=== PATIENT | female | born 1995 | race Hispanic/Latino ===

== ENCOUNTER 2017-08-09 21:10 | Inpatient (IN) | payer OTHER ==
[~2017-08-09] VITALS: Ht 152.4 cm; Wt 85.2 kg
[2017-08-09] MEDS ORDERED: ONDANSETRON HCL MDV 20ML 2 MG/ML VIAL ONE (21:35)
[2017-08-09 21:42] LABS: BASOPHILS % (AUTO) 0.6 % (0.0-5.0); EOSINOPHILS % (AUTO) 0.1 % (0.0-8.0); HEMATOCRIT 45.3 % (36-48); LYMPHOCYTES % (AUTO) 18.6 % (21.0-51.0); MEAN CORPUSCULAR HEMOGLOBIN 30.7 pg (27.0-33.0); MEAN CORPUSCULAR HGB CONC 34.7 g/dL (32.0-36.0); MEAN CORPUSCULAR VOLUME 88.5 fL (79-99); MONOCYTES % (AUTO) 3.9 % (3.0-13.0); NEUTROPHILS % (AUTO) 76.8 % (40.0-77.0); NUCLEATED RED BLOOD CELLS 0.1 % (0.0-0.19); PLATELET COUNT (AUTO) 515 K/uL (130-400); RED BLOOD CELL COUNT(AUTO) 5.12 MIL/uL (4.00-5.50); RED CELL DISTRIBUTION WIDTH 13.2 % (11.0-15.5); WHITE BLOOD COUNT (AUTO) 15.7 K/uL (4.8-10.8)
[2017-08-09] MEDS ORDERED: KETOROLAC TROMETHAMINE 15MG/ML ONE (21:49)
[2017-08-09] MEDS ORDERED: SODIUM CHLORIDE 0.9% 1000ML 1,000 ML IV ONE (21:49)
[2017-08-09 21:54] LABS: APPEARANCE,URINE Clear (CLEAR); BILIRUBIN,URINE Negative (NEGATIVE); COLOR,URINE Yellow (YELLOW); GLUCOSE, URINE (UA) >=1000 mg/dL (NEGATIVE); KETONES,URINE >=160 mg/dL (NEGATIVE); LEUKOCYTE ESTERASE ,URINE Negative (NEGATIVE); NITRATE,URINE Negative (NEGATIVE); OCCULT BLOOD,URINE Small (NEGATIVE); PROTEIN,URINE POS 1+ (NEGATIVE); UROBILINOGEN,URINE 0.2 mg/dL (0.2-1.0)
[2017-08-09 21:55] LABS: HCG,QUAL RESULT NEGATIVE (NEGATIVE)
[2017-08-09 22:06] LABS: BACTERIA,URINE Few /HPF (None Seen)
[2017-08-09 22:07] LABS: FINE GRANULAR CASTS,URINE 0-2 /LPF (None Seen); SQUAMOUS EPITHELIAL CELL,UR 30-50 /HPF (0-2)
[2017-08-09 22:27] LABS: CREATININE 0.9 mg/dL (0.5-1.5); POTASSIUM 3.8 mmol/L (3.5-5.1)
[2017-08-09 22:32] LABS: ALBUMIN 4.1 g/dL (3.5-5.0); BILIRUBIN,TOTAL 0.5 mg/dL (0.2-1.0); TOTAL PROTEIN, SERUM 9.1 g/dL (6.0-8.3)
[2017-08-09] MEDS ORDERED: MAGNESIUM OXIDE 400 MG TABLET PO ONE ×2 (23:35→23:48)
[2017-08-09] MEDS ORDERED: POTASSIUM BICARB/CIT AC 25 MEQ TABLET.EFF ONE (23:35)
[2017-08-09] MEDS ORDERED: CLINDAMYCIN 600 MG/D5% WATER 50 ML IV ONE (23:35)
[2017-08-09 23:56] LABS: ABG OXYGEN SATURATION 31.4 % (95.0-99.0); BASE EXCESS,VENOUS BLOOD GAS -18.5 (-2.0-3.0); HCO3,VENOUS BLOOD GAS 9.7 (21.0-28.0); PCO2,VENOUS BLOOD GAS 31 (32-45); PH,VENOUS BLOOD GAS 7.117 (7.350-7.450)
[2017-08-10] VITALS (11 sets, daily range): BP systolic 104–138; BP diastolic 47–84
[2017-08-10] MEDS ORDERED: SODIUM CHLORIDE 0.9% 1000ML 1,000 ML IV ONE (00:36)
[2017-08-10] MEDS: FAMOTIDINE 20MG TAB 20 MG TAB PO SCH (02:30)
[2017-08-10] MEDS: SODIUM CHLORIDE 0.9% 1000ML 1,000 ML IV SCH ×3 (02:30→17:57)
[2017-08-10] MEDS ORDERED: POTASSIUM CHLORIDE 10% ELIXIR 20 MEQ/15 ML UDCUP PO PRN (02:45)
[2017-08-10] MEDS ORDERED: DEXTROSE 50%-WATER 50 ML DISP.SYRIN IV PRN (02:45)
[2017-08-10] MEDS ORDERED: GLUCAGON 1MG KIT 1 MG ML IM PRN (02:45)
[2017-08-10] MEDS ORDERED: CLINDAMYCIN 600 MG/D5% WATER 50 ML IV ONE (05:34)
[2017-08-10 05:59] LABS: BASOPHILS % (AUTO) 0.5 % (0.0-5.0); EOSINOPHILS % (AUTO) 0.4 % (0.0-8.0); HEMATOCRIT 41.2 % (36-48); LYMPHOCYTES % (AUTO) 28.5 % (21.0-51.0); MEAN CORPUSCULAR HGB CONC 33.8 g/dL (32.0-36.0); MEAN CORPUSCULAR VOLUME 88.7 fL (79-99); MONOCYTES % (AUTO) 7.7 % (3.0-13.0); NEUTROPHILS % (AUTO) 62.9 % (40.0-77.0); PLATELET COUNT (AUTO) 347 K/uL (130-400); RED BLOOD CELL COUNT(AUTO) 4.64 MIL/uL (4.00-5.50); RED CELL DISTRIBUTION WIDTH 12.8 % (11.0-15.5); WHITE BLOOD COUNT (AUTO) 11.2 K/uL (4.8-10.8)
[2017-08-10] MEDS: CLINDAMYCIN 600 MG/D5% WATER 50 ML IV SCH ×3 (06:00→17:58)
[2017-08-10 06:08] LABS: CREATININE 0.7 mg/dL (0.5-1.5); POTASSIUM 3.5 mmol/L (3.5-5.1)
[2017-08-10] MEDS: INSULIN HUMULIN R 100 UNIT/ML 3ML SQ SCH ×2 (07:30→11:23)
[2017-08-10] MEDS ORDERED: INSULIN DETEMIR 10ML 100 UNIT/ML 10ML SQ SCH (07:30)
[2017-08-10] MEDS ORDERED: DAPA10TA PO (08:42)
[2017-08-10] MEDS ORDERED: LISI-617 PO (08:42)
[2017-08-10] MEDS ORDERED: METF10004 PO (08:42)
[2017-08-10] MEDS ORDERED: SULF1TAB42 PO (09:28)
[2017-08-10 09:31] LABS: ABG BASE EXCESS -17.3 mmol/L (-2.0-3.0); ABG HCO3 8.5 mmol/L (21.0-28.0); ABG OXYGEN SATURATION 97.5 % (95.0-99.0); ABG PCO2 22 mmHg (32-45)
[2017-08-10] MEDS ORDERED: INSULIN REGULAR, HUMAN 3ML 100 UNIT in SODIUM CHLORIDE 0.9% 99 ML IV PRN ×4 (09:45→15:45)
[2017-08-10] MEDS: DEXTROSE 5 % AND 0.9 % NACL 1,000 ML IV SCH ×2 (10:16→16:43)
[2017-08-10 10:55] LABS: CREATININE 0.8 mg/dL (0.5-1.5); POTASSIUM 3.7 mmol/L (3.5-5.1)
[2017-08-10] MEDS: ENOXAPARIN SODIUM 40 MG/0.4 ML SYRINGE SQ SCH (11:00)
[2017-08-10] MEDS: ACETAMINOPHEN 325 MG TAB PO PRN ×2 (11:45→20:27)
[2017-08-10] MEDS ORDERED: ONDANSETRON HCL MDV 20ML 2 MG/ML VIAL IVP PRN (12:45)
[2017-08-10] MEDS ORDERED: MORPHINE SULFATE 2 MG/ML 1ML SYG IM PRN (12:45)
[2017-08-10 14:12] LABS: CREATININE 0.8 mg/dL (0.5-1.5); POTASSIUM 3.3 mmol/L (3.5-5.1)
[2017-08-10 18:20] LABS: CREATININE 0.8 mg/dL (0.5-1.5)
[2017-08-10 18:24] LABS: POTASSIUM 2.9 mmol/L (3.5-5.1)
[2017-08-10] MEDS: POTASSIUM CHLORIDE 20MEQ/100ML 100 ML IV PRN (18:41)
[2017-08-10] MEDS: LIDOCAINE HCL-MPF 1% 2ML VIAL IVP PRN ×2 (18:41→20:42)
[2017-08-10 22:28] LABS: CREATININE 0.7 mg/dL (0.5-1.5); MAGNESIUM 1.8 mg/dL (1.80-2.40); POTASSIUM 3.2 mmol/L (3.5-5.1)
[2017-08-11] VITALS (13 sets, daily range): BP systolic 104–145; BP diastolic 42–88
[2017-08-11] MEDS: CLINDAMYCIN 600 MG/D5% WATER 50 ML IV SCH ×4 (00:45→17:07)
[2017-08-11] MEDS: DEXTROSE 5 % AND 0.9 % NACL 1,000 ML IV SCH ×2 (00:49→05:27)
[2017-08-11 02:27] LABS: HEMATOCRIT 35.1 % (36-48); MEAN CORPUSCULAR HEMOGLOBIN 31.3 pg (27.0-33.0); MEAN CORPUSCULAR HGB CONC 35.3 g/dL (32.0-36.0); MEAN CORPUSCULAR VOLUME 88.5 fL (79-99); NUCLEATED RED BLOOD CELLS 0.1 % (0.0-0.19); PLATELET COUNT (AUTO) 320 K/uL (130-400); RED BLOOD CELL COUNT(AUTO) 3.97 MIL/uL (4.00-5.50); RED CELL DISTRIBUTION WIDTH 13.1 % (11.0-15.5); WHITE BLOOD COUNT (AUTO) 6.6 K/uL (4.8-10.8)
[2017-08-11] MEDS: FAMOTIDINE 20MG TAB 20 MG TAB PO SCH (02:30)
[2017-08-11] MEDS: SODIUM CHLORIDE 0.9% 1000ML 1,000 ML IV SCH ×3 (02:30→18:30)
[2017-08-11 02:42] LABS: CREATININE 0.8 mg/dL (0.5-1.5); MAGNESIUM 1.8 mg/dL (1.80-2.40)
[2017-08-11 03:19] LABS: EOSINOPHILS % (MANUAL) 1 % (1-6); LYMPHOCYTES % (MANUAL) 29 % (22-44); MONOCYTES % (MANUAL) 6 % (2-9); SEGMENTED NEUTROPHILS % 64 % (40-70)
[2017-08-11 03:20] LABS: MAN.DIFF COMMENT-IMPRESSION MANUAL DIFFERENTIAL; PLATELET MORPHOLOGY COMMENT ADEQUATE
[2017-08-11] MEDS: LIDOCAINE HCL-MPF 1% 2ML VIAL IVP PRN (03:39)
[2017-08-11] MEDS: POTASSIUM CHLORIDE 20MEQ/100ML 100 ML IV PRN (03:39)
[2017-08-11] MEDS: POTASSIUM CHLORIDE 20 MEQ ERTAB PO PRN ×3 (06:18→13:02)
[2017-08-11] MEDS ORDERED: INSULIN GLARGINE 100 UNITS/ML 10 ML VIAL SQ SCH ×2 (07:30→09:30)
[2017-08-11] MEDS: ENOXAPARIN SODIUM 40 MG/0.4 ML SYRINGE SQ SCH (08:06)
[2017-08-11 10:15] LABS: POTASSIUM 3.7 mmol/L (3.5-5.1)
[2017-08-11] MEDS: INSULIN HUMULIN R 100 UNIT/ML 3ML SQ SCH ×3 (11:48→20:54)
[2017-08-11 14:22] LABS: CREATININE 0.7 mg/dL (0.5-1.5); MAGNESIUM 1.9 mg/dL (1.80-2.40)
[2017-08-12] VITALS: BP 107/56
[2017-08-12] MEDS: FAMOTIDINE 20MG TAB 20 MG TAB PO SCH (02:30)
[2017-08-12 04:00] VITALS: BP 100/51
[2017-08-12 05:29] LABS: HEMATOCRIT 34.2 % (36-48); MEAN CORPUSCULAR HGB CONC 35.6 g/dL (32.0-36.0); MEAN CORPUSCULAR VOLUME 87.1 fL (79-99); PLATELET COUNT (AUTO) 296 K/uL (130-400); RED BLOOD CELL COUNT(AUTO) 3.92 MIL/uL (4.00-5.50); RED CELL DISTRIBUTION WIDTH 13.2 % (11.0-15.5); WHITE BLOOD COUNT (AUTO) 6.6 K/uL (4.8-10.8)
[2017-08-12 05:47] LABS: CREATININE 0.6 mg/dL (0.5-1.5)
[2017-08-12] MEDS: CLINDAMYCIN 600 MG/D5% WATER 50 ML IV SCH ×3 (06:25→12:03)
[2017-08-12] MEDS: LIDOCAINE HCL-MPF 1% 2ML VIAL IVP PRN ×2 (06:26→10:39)
[2017-08-12] MEDS: POTASSIUM CHLORIDE 20MEQ/100ML 100 ML IV PRN ×2 (06:26→10:39)
[2017-08-12] MEDS: SODIUM CHLORIDE 0.9% 1000ML 1,000 ML IV SCH ×2 (06:28→10:38)
[2017-08-12] MEDS: INSULIN HUMULIN R 100 UNIT/ML 3ML SQ SCH ×3 (06:28→16:48)
[2017-08-12 07:30] VITALS: BP 109/59
[2017-08-12] MEDS ORDERED: INSULIN GLARGINE 100 UNITS/ML 10 ML VIAL SQ SCH (07:30)
[2017-08-12] MEDS: ENOXAPARIN SODIUM 40 MG/0.4 ML SYRINGE SQ SCH (10:39)
[2017-08-12 11:00] VITALS: BP 109/59
[2017-08-12] MEDS ORDERED: CLIN300C9 PO (16:17)
== END 2017-08-12 17:45 | disposition home or self-care (01) | DRG 720 ==
LOC: EDH 21:10 → EDHIP 08-10 01:39 → OBSVTOIN 08-10 01:39 → 4BH 08-10 07:44 → 2CH 08-10 13:17 → 4BH 08-11 13:23
PROVIDERS: ADMIT Family Medicine; ATTEND Family Medicine
DX: A41.9 Sepsis, unspecified organism (principal); E11.10 Type 2 diabetes mellitus with ketoacidosis without coma; E87.2 Acidosis; L02.01 Cutaneous abscess of face; E11.65 Type 2 diabetes mellitus with hyperglycemia; E66.9 Obesity, unspecified; E86.0 Dehydration; Z79.84 Long term (current) use of oral hypoglycemic drugs; Z68.36 Body mass index [BMI] 36.0-36.9, adult; Z88.0 Allergy status to penicillin; Z83.3 Family history of diabetes mellitus
CPT/HCPCS: 36415; 36600; 80048; 80053; 81001; 81025; 82009; 82803; 82948; 83605; 83735; 84132; 85025; 85027; J1650; J1815; J1885; J3480; J3490; J7030; J7042

== ENCOUNTER 2020-03-24 16:41 | Inpatient (IN) | payer BC, OTHER ==
[~2020-03-24] VITALS: Ht 152.4 cm; Wt 32.2 kg
[~2020-03-24 16:41] MED LIST: CLIN300C10 PO; DAPA10TA PO; LISI-617 PO; METF-446 PO
[2020-03-24 18:46] LABS: APPEARANCE,URINE Cloudy (CLEAR); BILIRUBIN,URINE Negative (NEGATIVE); COLOR,URINE Yellow (YELLOW); GLUCOSE, URINE (UA) >=1000 mg/dL (NEGATIVE); KETONES,URINE >=160 mg/dL (NEGATIVE); LEUKOCYTE ESTERASE ,URINE Negative (NEGATIVE); NITRATE,URINE Negative (NEGATIVE); OCCULT BLOOD,URINE Small (NEGATIVE); PROTEIN,URINE POS 2+ mg/dL (NEGATIVE); UROBILINOGEN,URINE 0.2 mg/dL (0.2-1.0)
[2020-03-24 18:49] LABS: HCG,QUAL RESULT NEGATIVE (NEGATIVE)
[2020-03-24 19:06] LABS: RAPID GROUP A STREP NEGATIVE (NEGATIVE)
[2020-03-24 19:12] LABS: BACTERIA,URINE Few /HPF (None Seen); YEAST,URINE BUDDING Few /HPF (None Seen)
[2020-03-24 19:16] LABS: BASOPHILS % (AUTO) 0.5 % (0.0-5.0); EOSINOPHILS % (AUTO) 1.2 % (0.0-8.0); HEMATOCRIT 55.1 % (36-48); LYMPHOCYTES % (AUTO) 10.2 % (21.0-51.0); MEAN CORPUSCULAR HEMOGLOBIN 30.4 pg (27.0-33.0); MEAN CORPUSCULAR HGB CONC 31.9 g/dL (32.0-36.0); MEAN CORPUSCULAR VOLUME 95.3 fL (79-99); MONOCYTES % (AUTO) 7.3 % (3.0-13.0); NEUTROPHILS % (AUTO) 79.7 % (40.0-77.0); PLATELET COUNT (AUTO) 336 K/uL (130-400); RED BLOOD CELL COUNT(AUTO) 5.78 MIL/uL (4.00-5.50); RED CELL DISTRIBUTION WIDTH 14.2 % (11.0-15.5); WHITE BLOOD COUNT (AUTO) 11.6 K/uL (4.8-10.8)
[2020-03-24 19:30] LABS: ALBUMIN 3.7 g/dL (3.5-5.0); BILIRUBIN,TOTAL 0.3 mg/dL (0.2-1.0); CREATININE 0.8 mg/dL (0.5-1.5); POTASSIUM 3.7 mmol/L (3.5-5.1); TOTAL PROTEIN, SERUM 8.3 g/dL (6.0-8.3)
[2020-03-24 19:42] LABS: CRP QUANTITATIVE 21.4 mg/L (0.00-9.0)
[2020-03-24] MEDS ORDERED: ONDANSETRON HCL 4 MG/2 ML VIAL ONE (20:03)
[2020-03-24] MEDS ORDERED: MORPHINE SULFATE 2 MG/ML 1ML SYG ONE ×2 (20:03→21:46)
[2020-03-24] MEDS ORDERED: CLINDAMYCIN 900 MG/D5% WATER 50 ML IV ONE (20:04)
[2020-03-24] MEDS ORDERED: DEXTROSE 5 %-0.45 % NACL 1,000 ML IV PRN ×2 (21:30)
[2020-03-24] MEDS ORDERED: ERGOCALCIFEROL (VITAMIN D2) 50,000 UNIT CAPSULE PO ONE (21:30)
[2020-03-24] MEDS: SODIUM CHLORIDE 0.9% 1000ML 1,000 ML IV SCH (21:30)
[2020-03-24] MEDS ORDERED: POTASSIUM CHLORIDE 10MEQ/100ML 100 ML IV PRN (21:30)
[2020-03-24] MEDS ORDERED: INSULIN HUMULIN R 100 UNIT/ML 3ML IV SCH (21:30)
[2020-03-24] MEDS ORDERED: SODIUM CHLORIDE 0.9% 1000ML 1,000 ML IV SCH (21:30)
[2020-03-24] MEDS ORDERED: ACETAMINOPHEN 650 MG SUPPOSITORY RC PRN ×2 (21:45)
[2020-03-24] MEDS ORDERED: ONDANSETRON HCL 4 MG/2 ML VIAL IV PRN (21:45)
[2020-03-24] MEDS ORDERED: ALBUTEROL INHALER 90MCG/INH IH PRN (21:45)
[2020-03-24] MEDS ORDERED: NITROGLYCERIN 0.4 MG SL TAB SL PRN (21:45)
[2020-03-24] MEDS ORDERED: ALOGRITHM #1 100 UNIT INSULIN/NS 100ML IV SCH ×2 (21:45)
[2020-03-24] MEDS ORDERED: ACETYLCYSTEINE 600 MG CAPSULE ONE (21:58)
[2020-03-24] MEDS ORDERED: ERGOCALCIFEROL (VITAMIN D2) 50,000 UNIT CAPSULE ONE (21:58)
[2020-03-24] MEDS ORDERED: INSULIN HUMULIN R 100 UNIT/ML 3ML ONE (22:00)
[2020-03-24] MEDS ORDERED: SODIUM CHLORIDE 0.9% 100 ML IV ONE (22:01)
[2020-03-24] MEDS ORDERED: SODIUM CHLORIDE 0.9% 1000ML 1,000 ML IV ONE (22:01)
[2020-03-24 22:06] LABS: HEMOGLOBIN A1C 9.2 % (4.0-6.0)
[2020-03-24 22:27] LABS: ABG OXYGEN SATURATION 50.7 % (95.0-99.0); BASE EXCESS,VENOUS BLOOD GAS -25.3 (-2.0-3.0); HCO3,VENOUS BLOOD GAS 5.3 (21.0-28.0); PCO2,VENOUS BLOOD GAS 23 (32-45); PH,VENOUS BLOOD GAS 6.974 (7.350-7.450)
[2020-03-24 22:42] LABS: MAGNESIUM 1.7 mg/dL (1.80-2.40); POTASSIUM 3.8 mmol/L (3.5-5.1)
[2020-03-24] MEDS ORDERED: MORPHINE SULFATE 4 MG/1ML SYG ONE (23:57)
[2020-03-25] VITALS (32 sets, daily range): BP systolic 83–134; BP diastolic 45–86
[2020-03-25] MEDS ORDERED: MAGNESIUM 2GM PREMIX 50ML 50 ML IV SCH (00:15)
[2020-03-25] MEDS ORDERED: SODIUM CHLORIDE 0.9% 1000ML 1,000 ML IV ONE (01:17)
[2020-03-25 01:58] LABS: ABG OXYGEN SATURATION 71.4 % (95.0-99.0); BASE EXCESS,VENOUS BLOOD GAS -27.6 (-2.0-3.0); HCO3,VENOUS BLOOD GAS 4.6 (21.0-28.0); PCO2,VENOUS BLOOD GAS 24 (32-45); PH,VENOUS BLOOD GAS < 6.960 (7.350-7.450)
[2020-03-25] MEDS ORDERED: DOXYCYCLINE 100MG+NS 250ML IV SCH (02:00)
[2020-03-25] MEDS ORDERED: CLINDAMYCIN 600 MG/D5% WATER 50 ML IV SCH (03:00)
[2020-03-25 03:21] LABS: BASOPHILS % (AUTO) 0.7 % (0.0-5.0); HEMATOCRIT 52.5 % (36-48); LYMPHOCYTES % (AUTO) 6.6 % (21.0-51.0); MEAN CORPUSCULAR HEMOGLOBIN 30.3 pg (27.0-33.0); MEAN CORPUSCULAR HGB CONC 31.6 g/dL (32.0-36.0); MEAN CORPUSCULAR VOLUME 95.8 fL (79-99); MONOCYTES % (AUTO) 5.5 % (3.0-13.0); NEUTROPHILS % (AUTO) 85.2 % (40.0-77.0); PLATELET COUNT (AUTO) 315 K/uL (130-400); RED BLOOD CELL COUNT(AUTO) 5.48 MIL/uL (4.00-5.50); RED CELL DISTRIBUTION WIDTH 14.1 % (11.0-15.5); WHITE BLOOD COUNT (AUTO) 15.6 K/uL (4.8-10.8)
[2020-03-25 03:28] LABS: ALBUMIN 3.1 g/dL (3.5-5.0); BILIRUBIN,TOTAL 0.2 mg/dL (0.2-1.0); CREATININE 0.9 mg/dL (0.5-1.5); CRP QUANTITATIVE 26.3 mg/L (0.00-9.0); MAGNESIUM 1.4 mg/dL (1.80-2.40); POTASSIUM 3.5 mmol/L (3.5-5.1); TOTAL PROTEIN, SERUM 7.2 g/dL (6.0-8.3)
[2020-03-25] MEDS ORDERED: MORPHINE SULFATE 4 MG/1ML SYG ONE (03:50)
[2020-03-25] MEDS ORDERED: SODIUM CHLORIDE 0.9% 50 ML IV ONE (03:52)
[2020-03-25] MEDS ORDERED: CALCIUM CHLORIDE 100 MG/ML 10 ML SYG IVP SCH (04:00)
[2020-03-25 05:24] LABS: BASE EXCESS,VENOUS BLOOD GAS -25.5 (-2.0-3.0); HCO3,VENOUS BLOOD GAS 4.9 (21.0-28.0); PCO2,VENOUS BLOOD GAS 21 (32-45); PH,VENOUS BLOOD GAS 6.977 (7.350-7.450)
[2020-03-25 05:42] LABS: ABG OXYGEN SATURATION 85.3 % (95.0-99.0); BASE EXCESS,VENOUS BLOOD GAS -25.5 (-2.0-3.0); PCO2,VENOUS BLOOD GAS 17 (32-45); PH,VENOUS BLOOD GAS 7.004 (7.350-7.450)
[2020-03-25 08:46] LABS: ABG BASE EXCESS -23.4 mmol/L (-2.0-3.0); ABG HCO3 3.9 mmol/L (21.0-28.0); ABG PCO2 < 15 mmHg (32-45)
[2020-03-25 08:51] LABS: CREATININE 0.6 mg/dL (0.5-1.5); MAGNESIUM 1.5 mg/dL (1.80-2.40); POTASSIUM 3.5 mmol/L (3.5-5.1)
[2020-03-25] MEDS ORDERED: ENOXAPARIN SODIUM 40 MG/0.4 ML SYRINGE SQ SCH (09:00)
[2020-03-25] MEDS: DOXYCYCLINE 100MG+NS 250ML 250 ML IV SCH ×2 (09:14→13:58)
[2020-03-25] MEDS: MORPHINE SULFATE 4 MG/1ML SYG IV PRN ×3 (09:16→22:29)
[2020-03-25] MEDS: ACETYLCYSTEINE 600 MG CAPSULE PO SCH ×2 (09:16→20:45)
[2020-03-25] MEDS: ASCORBIC ACID 500 MG TAB PO SCH (09:16)
[2020-03-25] MEDS: ZINC SULFATE 220 CAPSULE PO SCH (09:16)
[2020-03-25] MEDS: FAMOTIDINE/PF 20 MG/2 ML VIAL IV SCH ×2 (09:17→20:45)
[2020-03-25] MEDS ORDERED: LIDOCAINE HCL-MPF 1% 2ML VIAL IV PRN (11:45)
[2020-03-25] MEDS ORDERED: MAGNESIUM 2GM PREMIX 50ML 50 ML IV PRN (11:45)
[2020-03-25] MEDS ORDERED: SODIUM BICARB 8.4% 50ML SYRINGE IVP SCH (11:45)
[2020-03-25] MEDS ORDERED: SODIUM BICARB 50MEQ 50ML VIAL IV SCH ×2 (12:00→22:00)
[2020-03-25] MEDS ORDERED: IBUPROFEN 600 MG TABLET PO PRN (12:15)
[2020-03-25] MEDS: ENOXAPARIN SODIUM 40 MG/0.4 ML SYRINGE SQ SCH ×2 (12:15→21:47)
[2020-03-25 12:54] LABS: ABG BASE EXCESS -18.4 mmol/L (-2.0-3.0); ABG HCO3 7.5 mmol/L (21.0-28.0); ABG OXYGEN SATURATION 85.6 % (95.0-99.0); ABG PCO2 20 mmHg (32-45)
[2020-03-25 13:00] LABS: CHLORIDE 104 mmol/L (101-111); CREATININE 0.7 mg/dL (0.5-1.5); GLOMERULAR FILTR. RATE CALC 107 mL/min (>60); GLUCOSE,RANDOM 255 mg/dL (70-105); POTASSIUM 3.6 mmol/L (3.5-5.1); SODIUM SERUM 131 mmol/L (136-145); UREA NITROGEN, BLOOD 8 mg/dL (7-18)
[2020-03-25 13:02] LABS: CARBON DIOXIDE < 5 mmol/L (21-32)
[2020-03-25] MEDS: LEVOFLOXACIN 500 MG/D5W 100 ML 100 ML IV SCH (13:59)
[2020-03-25] MEDS ORDERED: BENZONATATE 100 MG CAPSULE PO ONE (15:25)
[2020-03-25] MEDS ORDERED: BENZONATATE 100 MG CAPSULE PO PRN (15:30)
[2020-03-25 16:03] LABS: CREATININE 0.7 mg/dL (0.5-1.5)
[2020-03-25] MEDS: POTASSIUM CHLORIDE 20MEQ/100ML 100 ML IV PRN ×3 (16:20→21:19)
[2020-03-25 16:33] LABS: POTASSIUM 2.4 mmol/L (3.5-5.1)
[2020-03-25] MEDS ORDERED: GUAIFENESIN-CODEINE 5 ML SYRUP PO PRN (18:00)
[2020-03-25 18:33] LABS: MAGNESIUM 2.3 mg/dL (1.80-2.40); POTASSIUM 3.3 mmol/L (3.5-5.1)
[2020-03-25 20:00] LABS: CREATININE 0.7 mg/dL (0.5-1.5); POTASSIUM 3.3 mmol/L (3.5-5.1)
[2020-03-25 20:01] LABS: ABG OXYGEN SATURATION 81.6 % (95.0-99.0); BASE EXCESS,VENOUS BLOOD GAS -23.6 (-2.0-3.0); HCO3,VENOUS BLOOD GAS 6.1 (21.0-28.0); PCO2,VENOUS BLOOD GAS 24 (32-45); PH,VENOUS BLOOD GAS 7.017 (7.350-7.450)
[2020-03-25 20:02] LABS: PHOSPHORUS 1.1 mg/dL (2.5-4.9)
[2020-03-25] MEDS ORDERED: SODIUM BICARB 50MEQ 50ML VIAL 50 ML ONE ×3 (20:13→20:27)
[2020-03-25] MEDS ORDERED: DEXTROSE 10%-WATER 1,000 ML IV ONE (20:27)
[2020-03-25] MEDS ORDERED: DEXTROSE 5%-WATER 500 ML IV ONE (20:28)
[2020-03-25] MEDS ORDERED: SODIUM BICARB 8.4% 50ML SYRING 150 MEQ in DEXTROSE 5%-WATER 1,000 ML IVP SCH (20:30)
[2020-03-25] MEDS ORDERED: SODIUM CHLORIDE IV SCH (20:45)
[2020-03-25] MEDS ORDERED: WATER IV SCH (20:45)
[2020-03-25] MEDS ORDERED: DEXTROSE 10% IV SCH (20:45)
[2020-03-25] MEDS ORDERED: POTASSIUM CHLORIDE 10% ELIXIR 20 MEQ/15 ML UDCUP ONE (21:22)
[2020-03-25] MEDS ORDERED: ACETAMINOPHEN 325 MG TAB ONE (21:55)
[2020-03-25] MEDS ORDERED: ACETAMINOPHEN 325 MG TAB PO PRN (22:00)
[2020-03-25] MEDS ORDERED: POTASSIUM PHOS 15 mMOL+NS250ML 250 ML IV PRN (22:00)
[2020-03-25] MEDS: SODIUM CHLORIDE 0.9% 1000ML 1,000 ML IV SCH (22:30)
[2020-03-25 23:05] LABS: CREATININE 0.7 mg/dL (0.5-1.5); POTASSIUM 3.3 mmol/L (3.5-5.1)
[2020-03-26] VITALS (77 sets, daily range): BP systolic 51–161; BP diastolic 32–96
[2020-03-26] MEDS ORDERED: PHARMACY COMMUNICATION MISC SCH ×2 (00:30→18:00)
[2020-03-26 00:49] LABS: ABG HCO3 11.4 mmol/L (21.0-28.0); ABG PCO2 32 mmHg (32-45)
[2020-03-26] MEDS ORDERED: SODIUM BICARB 50MEQ 50ML VIAL 150 ML ONE ×2 (00:52→04:52)
[2020-03-26] MEDS: POTASSIUM CHLORIDE 20MEQ/100ML 100 ML IV PRN ×5 (01:26→13:41)
[2020-03-26] MEDS: DOXYCYCLINE 100MG+NS 250ML 250 ML IV SCH ×2 (02:08→13:41)
[2020-03-26] MEDS ORDERED: SODIUM CHLORIDE 0.9% 100 ML IV ONE ×2 (02:38→02:45)
[2020-03-26] MEDS ORDERED: NOREPINEPHRINE 4MG/NS 250ML 250 ML IV ONE (03:31)
[2020-03-26 04:13] LABS: BASOPHILS % (AUTO) 0.1 % (0.0-5.0); HEMATOCRIT 47.3 % (36-48); LYMPHOCYTES % (AUTO) 5.1 % (21.0-51.0); MEAN CORPUSCULAR HEMOGLOBIN 30.3 pg (27.0-33.0); MEAN CORPUSCULAR HGB CONC 33.6 g/dL (32.0-36.0); MEAN CORPUSCULAR VOLUME 90.1 fL (79-99); MONOCYTES % (AUTO) 2.8 % (3.0-13.0); NEUTROPHILS % (AUTO) 91.3 % (40.0-77.0); PLATELET COUNT (AUTO) 243 K/uL (130-400); RED BLOOD CELL COUNT(AUTO) 5.25 MIL/uL (4.00-5.50); RED CELL DISTRIBUTION WIDTH 14.1 % (11.0-15.5); WHITE BLOOD COUNT (AUTO) 16.6 K/uL (4.8-10.8)
[2020-03-26 04:46] LABS: ALBUMIN 1.9 g/dL (3.5-5.0); BILIRUBIN,TOTAL 0.2 mg/dL (0.2-1.0); CREATININE 0.8 mg/dL (0.5-1.5); CRP QUANTITATIVE 66.3 mg/L (0.00-9.0); MAGNESIUM 2.1 mg/dL (1.80-2.40); PHOSPHORUS 0.4 mg/dL (2.5-4.9)
[2020-03-26] MEDS ORDERED: DEXTROSE 5%-WATER 1,000 ML IV ONE (04:51)
[2020-03-26] MEDS ORDERED: POTASSIUM CHLORIDE 10% ELIXIR 20 MEQ/15 ML UDCUP ONE (05:09)
[2020-03-26 06:57] LABS: ABG BASE EXCESS -5.8 mmol/L (-2.0-3.0); ABG HCO3 21.4 mmol/L (21.0-28.0); ABG OXYGEN SATURATION 90.4 % (95.0-99.0); ABG PCO2 48 mmHg (32-45)
[2020-03-26] MEDS ORDERED: FUROSEMIDE 10 MG/ML 4ML VIAL IV SCH ×2 (07:15→09:00)
[2020-03-26] MEDS ORDERED: DIAZEPAM 5 MG TABLET PO SCH (07:15)
[2020-03-26] MEDS ORDERED: METOCLOPRAMIDE 10 MG/2 ML VIAL IVP SCH ×2 (07:30→21:30)
[2020-03-26 08:27] LABS: CREATININE 0.6 mg/dL (0.5-1.5); POTASSIUM 4.2 mmol/L (3.5-5.1)
[2020-03-26] MEDS ORDERED: ASPIRIN 325MG EC TAB 325 MG TABLET.DR PO SCH (09:00)
[2020-03-26] MEDS ORDERED: DEXAMETHASONE SOD PHOSPHATE 4 MG/ML 1ML VIAL IVP SCH (09:00)
[2020-03-26] MEDS ORDERED: DEXTROSE 5%-WATER 1,000 ML IV SCH (09:00)
[2020-03-26] MEDS: FAMOTIDINE/PF 20 MG/2 ML VIAL IV SCH ×2 (09:19→22:26)
[2020-03-26] MEDS: ACETYLCYSTEINE 600 MG CAPSULE PO SCH (09:19)
[2020-03-26] MEDS: DEXAMETHASONE SOD PHOSPHATE 4 MG/ML 1ML VIAL IVP SCH ×2 (09:19→22:26)
[2020-03-26] MEDS: ZINC SULFATE 220 CAPSULE PO SCH (09:20)
[2020-03-26] MEDS: ASCORBIC ACID 500 MG TAB PO SCH (09:20)
[2020-03-26] MEDS: MORPHINE SULFATE 2 MG/ML 1ML SYG IV PRN ×2 (09:21→15:13)
[2020-03-26] MEDS: ENOXAPARIN SODIUM 40 MG/0.4 ML SYRINGE SQ SCH ×2 (09:22→22:26)
[2020-03-26] MEDS ORDERED: PHENYLEPHRINE HCL 50 MG in SODIUM CHLORIDE 0.9% 250 ML IV PRN ×2 (09:45→10:03)
[2020-03-26] MEDS: METOCLOPRAMIDE 10 MG/2 ML VIAL IVP SCH ×2 (10:38→15:33)
[2020-03-26] MEDS ORDERED: DEXTROSE 5 %-0.45 % NACL 1,000 ML IV SCH (11:15)
[2020-03-26] MEDS ORDERED: LACTATED RINGERS 1000ML 2,000 ML IV ONE (11:15)
[2020-03-26] MEDS ORDERED: LACTATED RINGERS 1000ML 1,000 ML IV SCH ×2 (11:15)
[2020-03-26] MEDS: LEVOFLOXACIN 500 MG/D5W 100 ML 100 ML IV SCH (11:17)
[2020-03-26 11:43] LABS: ABG BASE EXCESS -4.2 mmol/L (-2.0-3.0); ABG HCO3 20.8 mmol/L (21.0-28.0); ABG OXYGEN SATURATION 93.9 % (95.0-99.0); ABG PCO2 38 mmHg (32-45)
[2020-03-26 12:04] LABS: CREATININE 0.6 mg/dL (0.5-1.5); POTASSIUM 3.4 mmol/L (3.5-5.1)
[2020-03-26] MEDS ORDERED: COMPOUND IV REFRIGERATED 1 EACH IVSOLN MISC PRN (15:00)
[2020-03-26] MEDS ORDERED: REMDESIVIR (EUA) 520 200 MG in SODIUM CHLORIDE 0.9% 250 ML IV ONE (15:00)
[2020-03-26] MEDS ORDERED: DEXMEDETOMIDINE HCL 400 MCG in SODIUM CHLORIDE 0.9% 100 ML IV SCH (16:00)
[2020-03-26 16:45] LABS: CREATININE 0.6 mg/dL (0.5-1.5); POTASSIUM 4.1 mmol/L (3.5-5.1)
[2020-03-26 17:09] LABS: ABG BASE EXCESS -5.5 mmol/L (-2.0-3.0); ABG HCO3 18.9 mmol/L (21.0-28.0); ABG OXYGEN SATURATION 91.8 % (95.0-99.0); ABG PCO2 34 mmHg (32-45)
[2020-03-26 18:32] LABS: ABG BASE EXCESS -25.5 mmol/L (-2.0-3.0); ABG HCO3 9.9 mmol/L (21.0-28.0); ABG OXYGEN SATURATION 69.9 % (95.0-99.0); ABG PCO2 63 mmHg (32-45)
[2020-03-26 18:40] LABS: MAGNESIUM 1.9 mg/dL (1.80-2.40)
[2020-03-26 18:45] LABS: BASOPHILS % (AUTO) 0.3 % (0.0-5.0); EOSINOPHILS % (AUTO) 0.2 % (0.0-8.0); HEMATOCRIT 46.7 % (36-48); LYMPHOCYTES % (AUTO) 12.7 % (21.0-51.0); MEAN CORPUSCULAR HEMOGLOBIN 30.5 pg (27.0-33.0); MEAN CORPUSCULAR HGB CONC 32.1 g/dL (32.0-36.0); MEAN CORPUSCULAR VOLUME 95.1 fL (79-99); MONOCYTES % (AUTO) 2.1 % (3.0-13.0); NEUTROPHILS % (AUTO) 83.3 % (40.0-77.0); NUCLEATED RED BLOOD CELLS 0.2 % (0.0-0.19); PLATELET COUNT (AUTO) 157 K/uL (130-400); RED BLOOD CELL COUNT(AUTO) 4.91 MIL/uL (4.00-5.50); RED CELL DISTRIBUTION WIDTH 14.9 % (11.0-15.5); WHITE BLOOD COUNT (AUTO) 25.1 K/uL (4.8-10.8)
[2020-03-26 18:53] LABS: CREATININE 0.6 mg/dL (0.5-1.5); POTASSIUM 5.2 mmol/L (3.5-5.1)
[2020-03-26 19:04] LABS: TROPONIN I 0.32 ng/mL (0.00-0.06)
[2020-03-26 19:06] LABS: INR 1.29 (0.85-1.15); PARTIAL THROMBOPLASTIN TIME 65.2 SEC (26.3-35.5); PROTHROMBIN TIME 13.8 SEC (9.6-11.6)
[2020-03-26] MEDS ORDERED: PROPOFOL 1000 MG/100 ML 100 ML IV ONE (19:29)
[2020-03-26] MEDS ORDERED: VECURONIUM BROMIDE IV SCH ×3 (19:30→21:15)
[2020-03-26] MEDS ORDERED: FENTANYL CITRATE PF 0.05 MG/ML 1,000 MCG in SODIUM CHLORIDE 0.9% 100 ML IVPB SCH ×4 (19:30)
[2020-03-26] MEDS ORDERED: NOREPINEPHRINE 4MG/NS 250ML 250 ML IV SCH (19:30)
[2020-03-26] MEDS ORDERED: PROPOFOL 1000 MG/100 ML IV PRN ×2 (19:30)
[2020-03-26] MEDS ORDERED: VASOPRESSIN 20 UNITS in SODIUM CHLORIDE 0.9% 100 ML IV SCH (19:30)
[2020-03-26] MEDS ORDERED: FENTANYL 2500MCG+NS 250ML 250 ML IV ONE (19:30)
[2020-03-26] MEDS ORDERED: SODIUM CHLORIDE 0.9% IV SCH ×3 (19:30→21:15)
[2020-03-26 19:38] LABS: ABG BASE EXCESS -8.6 mmol/L (-2.0-3.0); ABG HCO3 16.1 mmol/L (21.0-28.0); ABG PCO2 32 mmHg (32-45)
[2020-03-26] MEDS ORDERED: FENTANYL 2500MCG+NS 250ML 250 ML IV SCH (19:45)
[2020-03-26] MEDS ORDERED: PROPOFOL 1000 MG/100 ML 100 ML IV SCH (19:45)
[2020-03-26] MEDS ORDERED: VECURONIUM BROMIDE 50 MG in SODIUM CHLORIDE 0.9% 50 ML IV SCH (20:00)
[2020-03-26] MEDS ORDERED: NOREPINEPHRINE BITARTRATE 16 MG in SODIUM CHLORIDE 0.9% 250 ML IV SCH (20:00)
[2020-03-26] MEDS ORDERED: ALBUMIN (HUMAN) 25% 100 ML IV ONE (20:34)
[2020-03-26] MEDS ORDERED: NOREPINEPHRINE BITARTRATE 32 MG in SODIUM CHLORIDE 0.9% 250 ML IV SCH (20:45)
[2020-03-27] VITALS: BP 82/53
[2020-03-27] MEDS ORDERED: DOBUTAMINE 250MG/D5 250ML 250 ML IV ONE (00:23)
[2020-03-27 01:00] VITALS: BP 43/34
[2020-03-27 01:19] LABS: ABG BASE EXCESS -26.6 mmol/L (-2.0-3.0); ABG HCO3 6.1 mmol/L (21.0-28.0); ABG OXYGEN SATURATION 63.1 % (95.0-99.0); ABG PCO2 32 mmHg (32-45)
[2020-03-27] MEDS ORDERED: EPINEPHRINE 1 MG/ML AMPULE ONE ×2 (01:31→01:32)
[2020-03-27 01:33] LABS: BASOPHILS % (AUTO) 0.6 % (0.0-5.0); EOSINOPHILS % (AUTO) 1.5 % (0.0-8.0); HEMATOCRIT 45.9 % (36-48); LYMPHOCYTES % (AUTO) 19.3 % (21.0-51.0); MEAN CORPUSCULAR HGB CONC 32.2 g/dL (32.0-36.0); MEAN CORPUSCULAR VOLUME 96.2 fL (79-99); MONOCYTES % (AUTO) 3.9 % (3.0-13.0); NEUTROPHILS % (AUTO) 70.2 % (40.0-77.0); NUCLEATED RED BLOOD CELLS 1.2 % (0.0-0.19); PLATELET COUNT (AUTO) 124 K/uL (130-400); RED BLOOD CELL COUNT(AUTO) 4.77 MIL/uL (4.00-5.50); RED CELL DISTRIBUTION WIDTH 15.3 % (11.0-15.5); WHITE BLOOD COUNT (AUTO) 23.3 K/uL (4.8-10.8)
[2020-03-27 02:01] LABS: ALBUMIN 1.1 g/dL (3.5-5.0); BILIRUBIN,TOTAL 0.4 mg/dL (0.2-1.0); CREATININE 1.2 mg/dL (0.5-1.5); MAGNESIUM 1.7 mg/dL (1.80-2.40); PHOSPHORUS 3.4 mg/dL (2.5-4.9); TOTAL PROTEIN, SERUM 3.2 g/dL (6.0-8.3)
[2020-03-27 02:12] LABS: POTASSIUM 7.1 mmol/L (3.5-5.1)
[2020-03-27] MEDS ORDERED: PHARMACY COMMUNICATION MISC SCH (06:00)
[2020-03-27] MEDS ORDERED: REMDESIVIR (EUA) 520 100 MG in SODIUM CHLORIDE 0.9% 250 ML IV SCH (15:00)
== END 2020-03-27 01:55 | disposition expired | DRG 871 ==
LOC: EDH 16:41 → EDHIP 16:42 → 2BH 03-25 09:36
PROVIDERS: ADMIT Internal Medicine; ATTEND Internal Medicine
PROC: 02HV33Z Insertion of Infusion Device into Superior Vena Cava, Percutaneous Approach (ICD-10-PCS; principal; 2020-03-26)
PROC: XW033E5 Introduction of Remdesivir Anti-infective into Peripheral Vein, Percutaneous Approach, New Technology Group 5 (ICD-10-PCS; 2020-03-26)
PROC: 5A09357 Assistance with Respiratory Ventilation, Less than 24 Consecutive Hours, Continuous Positive Airway Pressure (ICD-10-PCS; 2020-03-26)
PROC: 5A1935Z Respiratory Ventilation, Less than 24 Consecutive Hours (ICD-10-PCS; 2020-03-26)
PROC: 0BH17EZ Insertion of Endotracheal Airway into Trachea, Via Natural or Artificial Opening (ICD-10-PCS; 2020-03-26)
PROC: 5A12012 Performance of Cardiac Output, Single, Manual (ICD-10-PCS; 2020-03-26)
PROC: 03HY32Z Insertion of Monitoring Device into Upper Artery, Percutaneous Approach (ICD-10-PCS; 2020-03-26)
PROC: XW13325 Transfusion of Convalescent Plasma (Nonautologous) into Peripheral Vein, Percutaneous Approach, New Technology Group 5 (ICD-10-PCS; 2020-03-27)
PROC: 5A12012 Performance of Cardiac Output, Single, Manual (ICD-10-PCS; 2020-03-27)
DX: A41.89 Other specified sepsis (principal); U07.1 COVID-19; E11.10 Type 2 diabetes mellitus with ketoacidosis without coma; J12.89 Other viral pneumonia; J96.01 Acute respiratory failure with hypoxia; R65.21 Severe sepsis with septic shock; E87.1 Hypo-osmolality and hyponatremia; N39.0 Urinary tract infection, site not specified; L03.90 Cellulitis, unspecified; E11.649 Type 2 diabetes mellitus with hypoglycemia without coma; M34.9 Systemic sclerosis, unspecified; Z90.49 Acquired absence of other specified parts of digestive tract; Z88.0 Allergy status to penicillin; Z88.8 Allergy status to other drugs, medicaments and biological substances; E86.0 Dehydration; E86.1 Hypovolemia; L73.8 Other specified follicular disorders; Z78.9 Other specified health status; E87.8 Other disorders of electrolyte and fluid balance, not elsewhere classified
CPT/HCPCS: 31500; 36415; 36430; 36600; 71045; 71250; 80048; 80051; 80053; 81001; 81025; 82010; 82435; 82550; 82728; 82803; 82947; 82948; 83036; 83605; 83615; 83735; 83874; 84100; 84132; 84145; 84295; 84484; 85018; 85025; 85378; 85610; 85730; 86140; 86850; 86900; 86901; 86927; 87040; 87088; 87426; 87804; 87880; 92950; 93005; 93931; 93970; 94002; 94003; 94660; C1751; C1894; G0378; J0171; J1100; J1250; J1650; J1815; J1956; J2270; J2405; J2704; J2765; J3010; J3475; J3480; J3490; J7030; J7042; J7050; J7060; J7070; J7120; P9046